=== PATIENT | female | born 1970 | race African-American/Black ===

== ENCOUNTER 2016-05-21 19:39 | Inpatient (IN) | payer OTHER ==
[~2016-05-21] VITALS: Ht 167.6 cm; Wt 100.3 kg
[2016-05-21] MEDS ORDERED: MAGNEVIST 20ML IV ONE (19:40)
[2016-05-21] MEDS ORDERED: ASPIRIN 81 MG CHEW TAB ONE (23:40)
[2016-05-22] VITALS (8 sets, daily range): BP systolic 145–160; RESP 16–20; TEMP 97.7–98.3; Ht 167.6 cm; Wt 100.3 kg
[2016-05-22] MEDS: Atorvastatin 20 MG TAB PO SCH ×2 (00:25→20:15)
[2016-05-22] MEDS ORDERED: SALINE FLUSH 10 ML FLUSH PRN (00:25)
[2016-05-22] MEDS ORDERED: ONDANSETRON 4 MG VIAL IV PUSH PRN (00:25)
[2016-05-22] MEDS ORDERED: ACETAMINOPHEN 325 MG TAB PO PRN (00:25)
[2016-05-22] MEDS: SODIUM CHLORIDE 0.9% 1,000 ML IV SCH ×2 (02:37→16:36)
[2016-05-22] MEDS: SODIUM CHLORIDE 0.9% FLUSH BAG 500 ML IV SCH (05:43)
[2016-05-22] MEDS: SALINE FLUSH 10 ML FLUSH SCH ×2 (08:00→19:29)
[2016-05-22] MEDS: Aspirin 325 MG TAB PO SCH (08:42)
[2016-05-23 03:17] VITALS: BP_SYST 156; RESP 16; TEMP 97.9
[2016-05-23] MEDS: SODIUM CHLORIDE 0.9% FLUSH BAG 500 ML IV SCH (05:07)
[2016-05-23] MEDS: SODIUM CHLORIDE 0.9% 1,000 ML IV SCH (05:34)
[2016-05-23 07:33] VITALS: BP_SYST 154; RESP 16; TEMP 98.3
[2016-05-23] MEDS: SALINE FLUSH 10 ML FLUSH SCH (08:00)
[2016-05-23] MEDS: Aspirin 325 MG TAB PO SCH (08:46)
[2016-05-23 11:25] VITALS: BP_SYST 166; RESP 16; TEMP 97.4
[2016-05-23 13:03] VITALS: BP_SYST 166; RESP 16; TEMP 97.4
== END 2016-05-23 13:50 | disposition home or self-care (01) | DRG 66 ==
LOC: ENRESERVTM → ENRESERV → ENRESERVDT → ER 19:39 → ENPENDDIS 05-22 00:25 → EMR 05-22 00:25 → PCU 05-22 02:03
PROVIDERS: ADMIT Internal Medicine; ATTEND Internal Medicine
DX: I63.8 Other cerebral infarction (principal); I10 Essential (primary) hypertension; Z72.0 Tobacco use; D50.9 Iron deficiency anemia, unspecified; E66.9 Obesity, unspecified; Z68.35 Body mass index [BMI] 35.0-35.9, adult
CPT/HCPCS: 36415; 70450; 70553; 71010; 80053; 80061; 82553; 82607; 82746; 82947; 83540; 84466; 84484; 85025; 85379; 85384; 85610; 85730; 93005; 93306; 93880; 99222; 99239